=== PATIENT | female | born 1950 | race Caucasian/White ===

== ENCOUNTER 2021-06-01 21:40 | Inpatient (IN) | payer BC, MEDICARE ==
[2021-06-01 22:02] LABS: #Basophils 0.1 thou/uL (0.0-0.2); #Eosinphils 0.1 thou/uL (0.0-0.7); #Lymphocytes 1.6 thou/uL (1.20-3.40); #Monocytes 0.6 thou/uL (0.11-0.59); #Neutrophils 4.9 thou/uL (1.40-6.50); %Basophils 1.2 % (0.0-1.0); %Eosinophils 1.2 % (0.0-10.0); %Lymphocytes 22.2 % (21.0-51.0); %Monocytes 8.7 % (0.0-10.0); %Neutrophils 66.7 % (42.0-75.0); Hemoglobin 12.2 g/dL (12.0-16.0); Mean Corpuscular HGB CONC 34.4 g/dL (32.0-36.0); Mean Corpuscular Hemoglobin 33.3 pg (27.0-31.0); Mean Corpuscular Volume 96.7 fL (78.0-98.0); Mean Platelet Volume 8.3 fL (7.4-10.4); Platelet Count 225 thou/uL (130-400); RBC Distribution Width 12.9 % (11.5-14.5); Red Blood Cell (RBC) Count 3.68 mill/uL (4.20-5.40); White Blood Cell (WBC) Count 7.3 thou/uL (4.8-10.8)
[2021-06-01] MEDS ORDERED: Fentanyl 100 MCG/2 ML VIAL ONE (22:13)
[2021-06-01 23:22] LABS: Albumin 3.8 g/dL (3.4-4.8)
[2021-06-01 23:23] LABS: Chloride 100 mmol/L (98-107); Potassium 4.3 mmol/L (3.5-5.1); Sodium 136 mmol/L (136-145)
[2021-06-01 23:24] LABS: Calcium 9.8 mg/dL (7.8-10.44)
[2021-06-01 23:25] LABS: Globulin 3.1 g/dL (2.4-3.5); Glucose 125 mg/dL (83-110); Protein, Total 6.9 g/dL (5.8-8.1)
[2021-06-01 23:26] LABS: Anion Gap 14 mmol/L (10-20); Bilirubin, Total 0.4 mg/dL (0.2-1.2); Carbon Dioxide 26 mmol/L (23-31)
[2021-06-01 23:27] LABS: Alkaline Phosphatase 95 U/L (40-110)
[2021-06-01 23:28] LABS: Calc. Creatinine Clearance 0 mL/min (70-130)
[2021-06-01 23:29] LABS: BUN (Urea Nitrogen) 15 mg/dL (9.8-20.1)
[2021-06-01 23:30] LABS: ALT (SGPT) 17 U/L (8-55); AST (SGOT) 18 U/L (5-34)
[2021-06-01] MEDS ORDERED: Morphine 4 MG/ML VIAL ONE (23:32)
[2021-06-01] MEDS ORDERED: Ketorolac Tromethamine 30 MG/ML VIAL ONE (23:32)
[2021-06-01] MEDS ORDERED: Morphine 4 MG/ML VIAL SLOW IVP SCH (23:45)
[2021-06-01] MEDS ORDERED: Ketorolac Tromethamine 30 MG/ML VIAL IVP SCH (23:45)
[2021-06-02 00:16] LABS: SARS-CoV-2 NAA Rapid Test DETECTED (NotDetected)
[2021-06-02] MEDS ORDERED: HumaLOG 300 UNITS/3 ML VIAL SC PRN (01:45)
[2021-06-02] MEDS ORDERED: Dextrose 50% Abboject 50 ML SYRINGE SLOW IVP PRN (01:45)
[2021-06-02] MEDS ORDERED: Ondansetron ODT 4 MG TAB PO PRN (01:45)
[2021-06-02] MEDS ORDERED: Ondansetron PF 4 MG/2 ML Vial IVP PRN (01:45)
[2021-06-02] MEDS ORDERED: Dextrose 5% in Water 1,000 ML IV PRN (01:45)
[2021-06-02] MEDS: Sodium Chloride 0.9% 1,000 ML IV SCH ×2 (02:28→10:00)
[2021-06-02] MEDS: Ibuprofen 200 MG TAB PO SCH ×3 (02:29→18:35)
[2021-06-02] MEDS: Morphine 4 MG/ML VIAL SLOW IVP PRN ×2 (02:30→21:49)
[2021-06-02] MEDS: Cyclobenzaprine 10 MG TAB PO PRN ×2 (02:30→21:18)
[2021-06-02] MEDS: Acetaminophen 325 MG TAB PO SCH ×3 (02:30→21:20)
[2021-06-02 05:16] LABS: #Lymphocytes 0.7 thou/uL (1.20-3.40); #Monocytes 0.5 thou/uL (0.11-0.59); #Neutrophils 5.3 thou/uL (1.40-6.50); %Basophils 0.6 % (0.0-1.0); %Eosinophils 0.3 % (0.0-10.0); %Lymphocytes 10.8 % (21.0-51.0); %Neutrophils 81.4 % (42.0-75.0); Hemoglobin 11.4 g/dL (12.0-16.0); Mean Corpuscular HGB CONC 34.3 g/dL (32.0-36.0); Mean Corpuscular Hemoglobin 33.5 pg (27.0-31.0); Mean Corpuscular Volume 97.5 fL (78.0-98.0); Mean Platelet Volume 7.2 fL (7.4-10.4); Platelet Count 233 thou/uL (130-400); RBC Distribution Width 12.4 % (11.5-14.5); Red Blood Cell (RBC) Count 3.39 mill/uL (4.20-5.40); White Blood Cell (WBC) Count 6.5 thou/uL (4.8-10.8)
[2021-06-02 05:35] LABS: Anion Gap 14 mmol/L (10-20); BUN (Urea Nitrogen) 14 mg/dL (9.8-20.1); Calc. Creatinine Clearance 74 mL/min (70-130); Calcium 9.1 mg/dL (7.8-10.44); Carbon Dioxide 25 mmol/L (23-31); Chloride 100 mmol/L (98-107); Glucose 140 mg/dL (83-110); Potassium 3.9 mmol/L (3.5-5.1); Sodium 135 mmol/L (136-145)
[2021-06-02] MEDS ORDERED: ceFAZolin Sodium/D5W 2 GM in Premix Bag 1 BAG IVPB SCH (08:00)
[2021-06-02] MEDS ORDERED: ceFAZolin 2 GM/DEX 5% 100 ML BAG ONE ×2 (12:58→14:05)
[2021-06-02] MEDS ORDERED: Bupivacaine HCl 0.5%/Epinephrine 1:200,000/PF 30 ml Vial ONE (13:45)
[2021-06-02] MEDS ORDERED: Tranexamic Acid 1,000 MG/10 ML VIAL ONE (14:06)
[2021-06-02] MEDS ORDERED: Sodium Chloride 0.9% 100 ML ONE (14:06)
[2021-06-02] MEDS ORDERED: Albuterol Sulfate 1.25 MG/3 ML NEB ONE (14:42)
[2021-06-02] MEDS ORDERED: PROPOFOL 200 MG/20 ML VIAL ONE (14:58)
[2021-06-02] MEDS: Famotidine 20 MG TAB PO SCH ×2 (15:11→21:20)
[2021-06-02] MEDS ORDERED: Ondansetron HCl/PF 4 MG/2 ML Vial IVP PRN (16:46)
[2021-06-02] MEDS ORDERED: Promethazine HCl 25 MG/ML VIAL IVPB PRN (16:46)
[2021-06-02] MEDS ORDERED: Promethazine HCl 25 MG/ML VIAL IM PRN (16:46)
[2021-06-02] MEDS: hydrALAZINE 20 MG/ML VIAL SLOW IVP PRN (18:35)
[2021-06-02] MEDS: traMADol HCl 50 MG TAB PO PRN (21:19)
[2021-06-02] MEDS: ceFAZolin 2 GM/Dextrose 50 ML 2 GM in Premix Bag 1 BAG IVPB SCH (23:03)
[2021-06-03] MEDS: Acetaminophen 325 MG TAB PO SCH ×4 (01:25→23:53)
[2021-06-03] MEDS: Ibuprofen 200 MG TAB PO SCH ×3 (01:26→18:34)
[2021-06-03 08:10] LABS: Hemoglobin 11.4 g/dL (12.0-16.0); Mean Corpuscular Hemoglobin 33.4 pg (27.0-31.0); Mean Corpuscular Volume 98.2 fL (78.0-98.0); Mean Platelet Volume 7.2 fL (7.4-10.4); Platelet Count 199 thou/uL (130-400); RBC Distribution Width 12.3 % (11.5-14.5); Red Blood Cell (RBC) Count 3.41 mill/uL (4.20-5.40)
[2021-06-03] MEDS: traMADol HCl 50 MG TAB PO PRN ×2 (08:49→23:52)
[2021-06-03] MEDS: Famotidine 20 MG TAB PO SCH ×2 (08:51→23:53)
[2021-06-03] MEDS: ceFAZolin 2 GM/Dextrose 50 ML 2 GM in Premix Bag 1 BAG IVPB SCH (08:55)
[2021-06-03] MEDS ORDERED: Non-Formulary Item 1 EACH (Levothyroxine Sodium [Levothyroxine] 100 MCG Capsule) PO SCH (09:00)
[2021-06-03] MEDS: Enoxaparin Sodium 40 MG/0.4 ML SYRINGE SC SCH (10:41)
[2021-06-03] MEDS: Sodium Chloride 1 GM TAB PO SCH ×3 (10:43→23:54)
[2021-06-03] MEDS: Citalopram 10 MG TAB PO SCH (10:43)
[2021-06-03] MEDS: Rosuvastatin 20 MG TAB PO SCH (10:43)
[2021-06-03] MEDS ORDERED: Non-Formulary Item 1 EACH (Albuterol Sulfate [Albuterol Sulfate Hfa] 8.5 GM Hfa.Aer.Ad) INH SCH (12:00)
[2021-06-03] MEDS: HumaLOG 300 UNITS/3 ML VIAL SC PRN (12:09)
[2021-06-03] MEDS: Albuterol 200 PUFF (6.7GM INHALER) INH SCH ×3 (14:44→23:17)
[2021-06-03] MEDS: metFORMIN 500 MG TAB PO SCH (15:27)
[2021-06-04] MEDS ORDERED: diphenhydrAMINE 50 MG CAP PO SCH (02:30)
[2021-06-04] MEDS: Acetaminophen 325 MG TAB PO SCH ×4 (02:41→20:47)
[2021-06-04] MEDS: Ibuprofen 200 MG TAB PO SCH ×5 (02:44→18:00)
[2021-06-04] MEDS: Cyclobenzaprine 10 MG TAB PO PRN ×2 (02:44→20:49)
[2021-06-04] MEDS: Levothyroxine Sodium 100 MCG TAB PO SCH (05:15)
[2021-06-04 06:55] LABS: #Eosinphils 0.2 thou/uL (0.0-0.7); #Lymphocytes 0.7 thou/uL (1.20-3.40); #Monocytes 0.4 thou/uL (0.11-0.59); #Neutrophils 2.7 thou/uL (1.40-6.50); %Basophils 0.6 % (0.0-1.0); %Eosinophils 4.1 % (0.0-10.0); %Lymphocytes 16.9 % (21.0-51.0); %Monocytes 9.8 % (0.0-10.0); %Neutrophils 68.5 % (42.0-75.0); Mean Corpuscular HGB CONC 33.7 g/dL (32.0-36.0); Mean Corpuscular Hemoglobin 33.4 pg (27.0-31.0); Mean Platelet Volume 7.3 fL (7.4-10.4); Platelet Count 178 thou/uL (130-400); RBC Distribution Width 12.5 % (11.5-14.5); Red Blood Cell (RBC) Count 3.29 mill/uL (4.20-5.40); White Blood Cell (WBC) Count 3.9 thou/uL (4.8-10.8)
[2021-06-04 07:11] LABS: Anion Gap 10 mmol/L (10-20); BUN (Urea Nitrogen) 13 mg/dL (9.8-20.1); Calc. Creatinine Clearance 82 mL/min (70-130); Calcium 9.3 mg/dL (7.8-10.44); Carbon Dioxide 32 mmol/L (23-31); Chloride 101 mmol/L (98-107); Glucose 96 mg/dL (83-110); Magnesium 1.5 mg/dL (1.6-2.6); Phosphorus 2.3 mg/dL (2.3-4.7); Potassium 3.2 mmol/L (3.5-5.1); Sodium 140 mmol/L (136-145)
[2021-06-04] MEDS: Albuterol 200 PUFF (6.7GM INHALER) INH SCH ×4 (07:36→23:09)
[2021-06-04] MEDS: metFORMIN 500 MG TAB PO SCH ×2 (08:38→17:56)
[2021-06-04] MEDS: Enoxaparin Sodium 40 MG/0.4 ML SYRINGE SC SCH (08:39)
[2021-06-04] MEDS: Rosuvastatin 20 MG TAB PO SCH (08:39)
[2021-06-04] MEDS: Polyethylene Glycol 3350 17 GM Packet PO SCH (08:46)
[2021-06-04] MEDS: Sodium Chloride 1 GM TAB PO SCH ×3 (08:48→20:49)
[2021-06-04] MEDS: Senokot S 8.6-50 MG TAB PO SCH (08:48)
[2021-06-04] MEDS ORDERED: Potassium Phosphate 30 MMOL, Magnesium Sulfate 3 GM in Sodium Chloride 0.9% 250 ML 250 ML IVPB SCH (09:00)
[2021-06-04] MEDS ORDERED: Magnesium Sulfate 3 GM in Sodium Chloride 0.9% 100 ML IVPB SCH (09:00)
[2021-06-04] MEDS: HumaLOG 300 UNITS/3 ML VIAL SC PRN (12:28)
[2021-06-04] MEDS: Citalopram 10 MG TAB PO SCH (17:59)
[2021-06-04] MEDS: traMADol HCl 50 MG TAB PO PRN (20:49)
[2021-06-05] MEDS: Ibuprofen 200 MG TAB PO SCH ×3 (02:59→17:52)
[2021-06-05] MEDS: Acetaminophen 325 MG TAB PO SCH ×4 (03:00→22:13)
[2021-06-05] MEDS: Cyclobenzaprine 10 MG TAB PO PRN (03:05)
[2021-06-05] MEDS: Levothyroxine Sodium 100 MCG TAB PO SCH ×2 (07:06→14:34)
[2021-06-05] MEDS: Albuterol 200 PUFF (6.7GM INHALER) INH SCH ×3 (07:35→19:14)
[2021-06-05 08:42] LABS: #Eosinphils 0.1 thou/uL (0.0-0.7); #Lymphocytes 0.5 thou/uL (1.20-3.40); #Monocytes 0.3 thou/uL (0.11-0.59); #Neutrophils 1.8 thou/uL (1.40-6.50); %Basophils 1.2 % (0.0-1.0); %Eosinophils 4.5 % (0.0-10.0); %Lymphocytes 17.7 % (21.0-51.0); %Monocytes 10.3 % (0.0-10.0); %Neutrophils 66.2 % (42.0-75.0); Hemoglobin 9.4 g/dL (12.0-16.0); Mean Corpuscular HGB CONC 31.8 g/dL (32.0-36.0); Mean Corpuscular Hemoglobin 31.8 pg (27.0-31.0); Mean Platelet Volume 7.4 fL (7.4-10.4); Platelet Count 187 thou/uL (130-400); RBC Distribution Width 12.5 % (11.5-14.5); Red Blood Cell (RBC) Count 2.97 mill/uL (4.20-5.40); White Blood Cell (WBC) Count 2.7 thou/uL (4.8-10.8)
[2021-06-05 09:56] LABS: Anion Gap 13 mmol/L (10-20); BUN (Urea Nitrogen) 15 mg/dL (9.8-20.1); Calc. Creatinine Clearance 84 mL/min (70-130); Calcium 8.4 mg/dL (7.8-10.44); Carbon Dioxide 26 mmol/L (23-31); Chloride 101 mmol/L (98-107); Glucose 160 mg/dL (83-110); Magnesium 2.1 mg/dL (1.6-2.6); Potassium 3.9 mmol/L (3.5-5.1); Sodium 136 mmol/L (136-145)
[2021-06-05] MEDS: Polyethylene Glycol 3350 17 GM Packet PO SCH (10:37)
[2021-06-05] MEDS: Senokot S 8.6-50 MG TAB PO SCH (10:38)
[2021-06-05] MEDS ORDERED: traMADol HCl 50 MG TAB PO PRN (11:13)
[2021-06-05] MEDS: Sodium Chloride 1 GM TAB PO SCH ×3 (13:04→22:13)
[2021-06-05] MEDS: Enoxaparin Sodium 40 MG/0.4 ML SYRINGE SC SCH (13:04)
[2021-06-05] MEDS: Rosuvastatin 20 MG TAB PO SCH (13:04)
[2021-06-05] MEDS: Ascorbic Acid 500 mg Chewable Tablet PO SCH (16:57)
[2021-06-06] MEDS: Albuterol 200 PUFF (6.7GM INHALER) INH SCH ×4 (01:43→19:08)
[2021-06-06] MEDS: Acetaminophen 325 MG TAB PO SCH ×4 (02:30→20:26)
[2021-06-06] MEDS: Ibuprofen 200 MG TAB PO SCH ×3 (02:30→17:55)
[2021-06-06] MEDS: Levothyroxine Sodium 100 MCG TAB PO SCH (05:23)
[2021-06-06] MEDS: Ascorbic Acid 500 mg Chewable Tablet PO SCH (08:46)
[2021-06-06] MEDS: Sodium Chloride 1 GM TAB PO SCH ×3 (08:46→20:27)
[2021-06-06] MEDS: Rosuvastatin 20 MG TAB PO SCH (08:46)
[2021-06-06] MEDS: Senokot S 8.6-50 MG TAB PO SCH (08:46)
[2021-06-06] MEDS: Ferrous Sulfate 325 MG TAB PO SCH (08:47)
[2021-06-06] MEDS: Enoxaparin Sodium 40 MG/0.4 ML SYRINGE SC SCH (08:47)
[2021-06-06] MEDS: Citalopram 10 MG TAB PO SCH (08:47)
[2021-06-06] MEDS: Polyethylene Glycol 3350 17 GM Packet PO SCH (08:47)
[2021-06-06] MEDS: metFORMIN 500 MG TAB PO SCH (10:57)
[2021-06-06 11:47] LABS: #Eosinphils 0.1 thou/uL (0.0-0.7); #Lymphocytes 0.4 thou/uL (1.20-3.40); #Monocytes 0.3 thou/uL (0.11-0.59); #Neutrophils 1.8 thou/uL (1.40-6.50); %Basophils 1.8 % (0.0-1.0); %Eosinophils 3.7 % (0.0-10.0); %Lymphocytes 14.8 % (21.0-51.0); %Monocytes 10.9 % (0.0-10.0); %Neutrophils 68.7 % (42.0-75.0); Hemoglobin 10.1 g/dL (12.0-16.0); Mean Corpuscular HGB CONC 31.6 g/dL (32.0-36.0); Mean Corpuscular Hemoglobin 31.4 pg (27.0-31.0); Mean Corpuscular Volume 99.4 fL (78.0-98.0); Mean Platelet Volume 7.2 fL (7.4-10.4); Platelet Count 240 thou/uL (130-400); RBC Distribution Width 12.6 % (11.5-14.5); Red Blood Cell (RBC) Count 3.22 mill/uL (4.20-5.40); White Blood Cell (WBC) Count 2.6 thou/uL (4.8-10.8)
[2021-06-06] MEDS: cefTRIAXone\\ROCEPHIN 1 GM in Sodium Chloride 0.9% 100 ML IVPB SCH (15:39)
[2021-06-06] MEDS: Azithromycin 500 MG in Sodium Chloride 0.9% 250 ML 250 ML IVPB SCH (15:44)
[2021-06-07] MEDS: Albuterol 200 PUFF (6.7GM INHALER) INH SCH ×4 (01:34→19:14)
[2021-06-07] MEDS: Acetaminophen 325 MG TAB PO SCH ×4 (02:52→20:39)
[2021-06-07] MEDS: Ibuprofen 200 MG TAB PO SCH ×3 (02:52→19:55)
[2021-06-07] MEDS: Levothyroxine Sodium 100 MCG TAB PO SCH (06:16)
[2021-06-07 07:02] LABS: Mean Corpuscular HGB CONC 32.1 g/dL (32.0-36.0); Mean Corpuscular Hemoglobin 32.1 pg (27.0-31.0); Mean Platelet Volume 6.5 fL (7.4-10.4); Platelet Count 239 thou/uL (130-400); RBC Distribution Width 12.8 % (11.5-14.5); White Blood Cell (WBC) Count 2.3 thou/uL (4.8-10.8)
[2021-06-07 08:47] LABS: Band 35 % (5-11); Eosinophils 1 % (0-10); Lymphocytes 12 % (21-51); MDiff Complete? YES; Macrocytosis SLIGHT = 6-15 cells (100X) (0-5/hpf); Monocytes 11 % (0-10); Neutrophil 34 % (42-75); Platelet Morphology Comment Appears Adequate; Reactive Lymphocytes 7 % (0-10)
[2021-06-07] MEDS: Enoxaparin Sodium 40 MG/0.4 ML SYRINGE SC SCH (09:05)
[2021-06-07] MEDS: Citalopram 10 MG TAB PO SCH (09:06)
[2021-06-07] MEDS: Ferrous Sulfate 325 MG TAB PO SCH (09:06)
[2021-06-07] MEDS: Polyethylene Glycol 3350 17 GM Packet PO SCH (09:06)
[2021-06-07] MEDS: Ascorbic Acid 500 mg Chewable Tablet PO SCH (09:07)
[2021-06-07] MEDS: Senokot S 8.6-50 MG TAB PO SCH (09:07)
[2021-06-07] MEDS: Sodium Chloride 1 GM TAB PO SCH ×3 (09:07→20:38)
[2021-06-07] MEDS: Rosuvastatin 20 MG TAB PO SCH (09:07)
[2021-06-07] MEDS: cefTRIAXone\\ROCEPHIN 1 GM in Sodium Chloride 0.9% 100 ML IVPB SCH (14:09)
[2021-06-07] MEDS: Azithromycin 500 MG in Sodium Chloride 0.9% 250 ML 250 ML IVPB SCH (14:45)
[2021-06-07 22:41] LABS: Actual Bicarbonate (HCO3a) 31.7 mEq/L (22-28); Base Excess (BEa) 1.9 mEq/L (-2.0 to +3.0); Calcium, Ionized (arterial) 1.19 mmol/L (1.12-1.30); Carboxyhemoglobin (COHb) 0.4 gm% (0.0-3.0); Hemoglobin (Hb) 11.5 g/dL (12.0-16.0); O2 Tension (PaO2), arterial 239.3 mmHg (> 70.0); Potassium - ABG Lab 4.45 mmol/L (3.70-5.30)
[2021-06-07 22:42] LABS: CO2 Tension 81.1 mmHg (35.0-45.0); Puncture Site LRA; pH, Arterial 7.21 (7.35-7.45)
[2021-06-07] MEDS ORDERED: Bisacodyl 10 MG SUPP PR SCH (23:15)
[2021-06-07] MEDS ORDERED: Magnesium Sulfate 3 GM in Sodium Chloride 0.9% 250 ML 250 ML IVPB SCH (23:45)
[2021-06-08] MEDS: methylPREDNISolone Sod Succ 40 MG VIAL IVP SCH ×4 (00:22→17:19)
[2021-06-08] MEDS: Ibuprofen 200 MG TAB PO SCH ×4 (03:09→17:17)
[2021-06-08] MEDS: Acetaminophen 325 MG TAB PO SCH ×5 (03:09→19:54)
[2021-06-08] MEDS: Levothyroxine Sodium 100 MCG TAB PO SCH (05:20)
[2021-06-08] MEDS: Sodium Chloride 0.9% 1,000 ML IV SCH ×3 (05:22→21:00)
[2021-06-08 06:42] LABS: Anion Gap 16 mmol/L (10-20); BUN (Urea Nitrogen) 11 mg/dL (9.8-20.1); Calc. Creatinine Clearance 68 mL/min (70-130); Calcium 8.9 mg/dL (7.8-10.44); Carbon Dioxide 29 mmol/L (23-31); Chloride 102 mmol/L (98-107); Glucose 146 mg/dL (83-110); Magnesium 2.7 mg/dL (1.6-2.6); Phosphorus 3.4 mg/dL (2.3-4.7); Potassium 4.8 mmol/L (3.5-5.1); Sodium 142 mmol/L (136-145)
[2021-06-08] MEDS: Ferrous Sulfate 325 MG TAB PO SCH (08:36)
[2021-06-08 09:46] LABS: Band 24 % (5-11); Hemoglobin 10.5 g/dL (12.0-16.0); Lymphocytes 11 % (21-51); MDiff Complete? YES; Macrocytosis SLIGHT = 6-15 cells (100X) (0-5/hpf); Mean Corpuscular HGB CONC 32.1 g/dL (32.0-36.0); Mean Corpuscular Hemoglobin 32.1 pg (27.0-31.0); Mean Platelet Volume 6.8 fL (7.4-10.4); Monocytes 3 % (0-10); Neutrophil 60 % (42-75); Platelet Count 238 thou/uL (130-400); Platelet Morphology Comment Appears Adequate; Polychromasia SLIGHT = 2-3 cells (100X) (0-2/hpf); RBC Distribution Width 12.8 % (11.5-14.5); Reactive Lymphocytes 2 % (0-10); Red Blood Cell (RBC) Count 3.27 mill/uL (4.20-5.40); Target Cells SLIGHT = 2-5 cells (100X) (0-1/hpf); White Blood Cell (WBC) Count 1.9 thou/uL (4.8-10.8)
[2021-06-08] MEDS: Ascorbic Acid 500 mg Chewable Tablet PO SCH (10:06)
[2021-06-08] MEDS: Citalopram 10 MG TAB PO SCH (10:06)
[2021-06-08] MEDS: Sodium Chloride 1 GM TAB PO SCH ×2 (10:07→15:12)
[2021-06-08] MEDS: Rosuvastatin 20 MG TAB PO SCH (10:07)
[2021-06-08] MEDS: Polyethylene Glycol 3350 17 GM Packet PO SCH (10:07)
[2021-06-08] MEDS: Senokot S 8.6-50 MG TAB PO SCH (10:07)
[2021-06-08] MEDS: Famotidine/PF 20 mg/2ml Vial SLOW IVP SCH ×2 (10:11→19:55)
[2021-06-08] MEDS: Enoxaparin Sodium 40 MG/0.4 ML SYRINGE SC SCH (10:11)
[2021-06-08] MEDS: cefTRIAXone\\ROCEPHIN 1 GM in Sodium Chloride 0.9% 100 ML IVPB SCH (12:43)
[2021-06-08] MEDS: Azithromycin 500 MG in Sodium Chloride 0.9% 250 ML 250 ML IVPB SCH (13:16)
[2021-06-09] MEDS: methylPREDNISolone Sod Succ 40 MG VIAL IVP SCH ×4 (00:09→18:21)
[2021-06-09] MEDS: Acetaminophen 325 MG TAB PO SCH ×4 (01:57→20:01)
[2021-06-09] MEDS: Ibuprofen 200 MG TAB PO SCH ×3 (01:57→18:08)
[2021-06-09 04:00] LABS: #Lymphocytes 0.4 thou/uL (1.20-3.40); #Monocytes 0.2 thou/uL (0.11-0.59); #Neutrophils 1.6 thou/uL (1.40-6.50); %Eosinophils 0.3 % (0.0-10.0); %Lymphocytes 16.7 % (21.0-51.0); %Monocytes 8.1 % (0.0-10.0); %Neutrophils 74.8 % (42.0-75.0); Hemoglobin 9.4 g/dL (12.0-16.0); Mean Corpuscular HGB CONC 31.9 g/dL (32.0-36.0); Mean Corpuscular Hemoglobin 31.4 pg (27.0-31.0); Mean Corpuscular Volume 98.5 fL (78.0-98.0); Mean Platelet Volume 7.1 fL (7.4-10.4); Platelet Count 254 thou/uL (130-400); RBC Distribution Width 12.6 % (11.5-14.5); Red Blood Cell (RBC) Count 2.99 mill/uL (4.20-5.40); White Blood Cell (WBC) Count 2.1 thou/uL (4.8-10.8)
[2021-06-09 04:31] LABS: Anion Gap 14 mmol/L (10-20); BUN (Urea Nitrogen) 17 mg/dL (9.8-20.1); Calc. Creatinine Clearance 71 mL/min (70-130); Calcium 8.7 mg/dL (7.8-10.44); Carbon Dioxide 27 mmol/L (23-31); Chloride 105 mmol/L (98-107); Glucose 185 mg/dL (83-110); Magnesium 2.2 mg/dL (1.6-2.6); Phosphorus 2.6 mg/dL (2.3-4.7); Potassium 4.7 mmol/L (3.5-5.1); Sodium 141 mmol/L (136-145)
[2021-06-09] MEDS: Levothyroxine Sodium 100 MCG TAB PO SCH (05:41)
[2021-06-09] MEDS: HumaLOG 300 UNITS/3 ML VIAL SC PRN (06:23)
[2021-06-09] MEDS: Ferrous Sulfate 325 MG TAB PO SCH (08:47)
[2021-06-09] MEDS: Ascorbic Acid 500 mg Chewable Tablet PO SCH (08:49)
[2021-06-09] MEDS: Rosuvastatin 20 MG TAB PO SCH (08:49)
[2021-06-09] MEDS: Senokot S 8.6-50 MG TAB PO SCH (08:49)
[2021-06-09] MEDS: Famotidine/PF 20 mg/2ml Vial SLOW IVP SCH ×2 (08:49→20:03)
[2021-06-09] MEDS: Polyethylene Glycol 3350 17 GM Packet PO SCH (08:50)
[2021-06-09] MEDS: Sodium Chloride 0.9% 1,000 ML IV SCH ×2 (08:50→19:59)
[2021-06-09] MEDS: Enoxaparin Sodium 40 MG/0.4 ML SYRINGE SC SCH (08:50)
[2021-06-09] MEDS: Citalopram 10 MG TAB PO SCH (08:53)
[2021-06-09] MEDS: cefTRIAXone\\ROCEPHIN 1 GM in Sodium Chloride 0.9% 100 ML IVPB SCH (13:59)
[2021-06-09] MEDS: Azithromycin 500 MG in Sodium Chloride 0.9% 250 ML 250 ML IVPB SCH (14:08)
[2021-06-09] MEDS: hydrALAZINE 20 MG/ML VIAL SLOW IVP PRN (20:17)
[2021-06-09] MEDS: Cyclobenzaprine 10 MG TAB PO PRN (21:30)
[2021-06-09] MEDS: traMADol HCl 50 MG TAB PO PRN (21:33)
[2021-06-10] MEDS: methylPREDNISolone Sod Succ 40 MG VIAL IVP SCH ×4 (00:41→17:05)
[2021-06-10] MEDS: Acetaminophen 325 MG TAB PO SCH ×4 (01:20→21:28)
[2021-06-10] MEDS: Ibuprofen 200 MG TAB PO SCH ×3 (01:21→17:10)
[2021-06-10 03:24] LABS: #Lymphocytes 0.4 thou/uL (1.20-3.40); #Monocytes 0.4 thou/uL (0.11-0.59); #Neutrophils 2.8 thou/uL (1.40-6.50); %Eosinophils 0.1 % (0.0-10.0); %Lymphocytes 10.6 % (21.0-51.0); %Monocytes 9.9 % (0.0-10.0); %Neutrophils 79.4 % (42.0-75.0); Hemoglobin 9.5 g/dL (12.0-16.0); Mean Corpuscular HGB CONC 32.4 g/dL (32.0-36.0); Mean Corpuscular Hemoglobin 31.8 pg (27.0-31.0); Mean Corpuscular Volume 98.2 fL (78.0-98.0); Mean Platelet Volume 6.8 fL (7.4-10.4); Platelet Count 299 thou/uL (130-400); RBC Distribution Width 12.5 % (11.5-14.5); White Blood Cell (WBC) Count 3.5 thou/uL (4.8-10.8)
[2021-06-10 03:43] LABS: Anion Gap 14 mmol/L (10-20); BUN (Urea Nitrogen) 17 mg/dL (9.8-20.1); Calc. Creatinine Clearance 75 mL/min (70-130); Calcium 8.6 mg/dL (7.8-10.44); Carbon Dioxide 27 mmol/L (23-31); Chloride 103 mmol/L (98-107); Glucose 171 mg/dL (83-110); Magnesium 1.8 mg/dL (1.6-2.6); Phosphorus 2.3 mg/dL (2.3-4.7); Potassium 4.3 mmol/L (3.5-5.1); Sodium 140 mmol/L (136-145)
[2021-06-10] MEDS: Cyclobenzaprine 10 MG TAB PO PRN (05:24)
[2021-06-10] MEDS: Levothyroxine Sodium 100 MCG TAB PO SCH (05:24)
[2021-06-10] MEDS: Enoxaparin Sodium 40 MG/0.4 ML SYRINGE SC SCH (09:11)
[2021-06-10] MEDS: Famotidine/PF 20 mg/2ml Vial SLOW IVP SCH ×2 (09:11→21:30)
[2021-06-10] MEDS: Senokot S 8.6-50 MG TAB PO SCH (09:12)
[2021-06-10] MEDS: Citalopram 10 MG TAB PO SCH (09:12)
[2021-06-10] MEDS: Ferrous Sulfate 325 MG TAB PO SCH (09:12)
[2021-06-10] MEDS: Saccharomyces boulardii 250 MG CAP PO SCH (09:12)
[2021-06-10] MEDS: Rosuvastatin 20 MG TAB PO SCH (09:12)
[2021-06-10] MEDS: Acetaminophen/Codeine 30-300mg Tablet PO PRN ×2 (09:12→17:04)
[2021-06-10] MEDS: Ascorbic Acid 500 mg Chewable Tablet PO SCH (09:12)
[2021-06-10] MEDS: Polyethylene Glycol 3350 17 GM Packet PO SCH (09:13)
[2021-06-10] MEDS ORDERED: Furosemide 40 MG/4 ML VIAL ONE (10:57)
[2021-06-10] MEDS ORDERED: Furosemide 20 MG/2 ML VIAL SLOW IVP SCH (11:00)
[2021-06-10] MEDS: Azithromycin 500 MG in Sodium Chloride 0.9% 250 ML 250 ML IVPB SCH (13:27)
[2021-06-10] MEDS: cefTRIAXone\\ROCEPHIN 1 GM in Sodium Chloride 0.9% 100 ML IVPB SCH (13:27)
[2021-06-10] MEDS: Furosemide 20 MG/2 ML VIAL SLOW IVP SCH (17:04)
[2021-06-10 17:10] LABS: Anion Gap 14 mmol/L (10-20); BUN (Urea Nitrogen) 18 mg/dL (9.8-20.1); Calc. Creatinine Clearance 66 mL/min (70-130); Calcium 8.9 mg/dL (7.8-10.44); Carbon Dioxide 32 mmol/L (23-31); Chloride 99 mmol/L (98-107); Glucose 171 mg/dL (83-110); Magnesium 1.7 mg/dL (1.6-2.6); Phosphorus 2.5 mg/dL (2.3-4.7); Potassium 4.3 mmol/L (3.5-5.1); Sodium 141 mmol/L (136-145)
[2021-06-10] MEDS ORDERED: Magnesium Sulfate 3 GM in Sodium Chloride 0.9% 100 ML IV SCH (18:30)
[2021-06-10] MEDS ORDERED: metFORMIN 500 MG TAB PO SCH (18:30)
[2021-06-10] MEDS: Melatonin 3 MG TAB PO SCH (21:29)
[2021-06-11] MEDS: methylPREDNISolone Sod Succ 40 MG VIAL IVP SCH ×4 (00:05→17:16)
[2021-06-11] MEDS: Furosemide 20 MG/2 ML VIAL SLOW IVP SCH ×4 (00:59→21:22)
[2021-06-11] MEDS: Acetaminophen/Codeine 30-300mg Tablet PO PRN (02:45)
[2021-06-11] MEDS: Ibuprofen 200 MG TAB PO SCH ×3 (02:49→17:20)
[2021-06-11] MEDS: Acetaminophen 325 MG TAB PO SCH ×4 (02:58→14:16)
[2021-06-11 04:01] LABS: Mean Corpuscular HGB CONC 33.2 g/dL (32.0-36.0); Mean Corpuscular Hemoglobin 32.1 pg (27.0-31.0); Mean Corpuscular Volume 96.7 fL (78.0-98.0); Mean Platelet Volume 6.8 fL (7.4-10.4); Platelet Count 324 thou/uL (130-400); RBC Distribution Width 12.6 % (11.5-14.5); Red Blood Cell (RBC) Count 3.12 mill/uL (4.20-5.40); White Blood Cell (WBC) Count 3.3 thou/uL (4.8-10.8)
[2021-06-11 04:15] LABS: Anion Gap 16 mmol/L (10-20); BUN (Urea Nitrogen) 18 mg/dL (9.8-20.1); Calc. Creatinine Clearance 67 mL/min (70-130); Calcium 8.8 mg/dL (7.8-10.44); Carbon Dioxide 32 mmol/L (23-31); Chloride 96 mmol/L (98-107); Glucose 186 mg/dL (83-110); Magnesium 2.4 mg/dL (1.6-2.6); Potassium 3.6 mmol/L (3.5-5.1); Sodium 140 mmol/L (136-145)
[2021-06-11 04:27] LABS: Band 6 % (5-11); Lymphocytes 14 % (21-51); MDiff Complete? YES; Monocytes 9 % (0-10); Neutrophil 71 % (42-75)
[2021-06-11] MEDS: Levothyroxine Sodium 100 MCG TAB PO SCH (06:22)
[2021-06-11] MEDS ORDERED: Potassium Phosphate 30 MMOL in Sodium Chloride 0.9% 250 ML 250 ML IVPB SCH (08:00)
[2021-06-11] MEDS ORDERED: Furosemide 20 MG/2 ML VIAL SLOW IVP SCH (09:30)
[2021-06-11] MEDS: Ferrous Sulfate 325 MG TAB PO SCH (09:45)
[2021-06-11] MEDS: Cyclobenzaprine 10 MG TAB PO PRN (09:45)
[2021-06-11] MEDS: Ascorbic Acid 500 mg Chewable Tablet PO SCH (09:45)
[2021-06-11] MEDS: metFORMIN 500 MG TAB PO SCH ×2 (09:46→17:16)
[2021-06-11] MEDS: Rosuvastatin 20 MG TAB PO SCH (09:47)
[2021-06-11] MEDS: Senokot S 8.6-50 MG TAB PO SCH (09:47)
[2021-06-11] MEDS: Saccharomyces boulardii 250 MG CAP PO SCH (09:48)
[2021-06-11] MEDS: Citalopram 10 MG TAB PO SCH (09:48)
[2021-06-11] MEDS: Famotidine 20 MG TAB PO SCH ×2 (09:49→21:21)
[2021-06-11] MEDS: Enoxaparin Sodium 40 MG/0.4 ML SYRINGE SC SCH (09:49)
[2021-06-11] MEDS: Polyethylene Glycol 3350 17 GM Packet PO SCH (09:50)
[2021-06-11] MEDS: cefTRIAXone\\ROCEPHIN 1 GM in Sodium Chloride 0.9% 100 ML IVPB SCH (13:46)
[2021-06-11] MEDS: Azithromycin 500 MG in Sodium Chloride 0.9% 250 ML 250 ML IVPB SCH (13:52)
[2021-06-11] MEDS: HumaLOG 300 UNITS/3 ML VIAL SC PRN (17:17)
[2021-06-11] MEDS: Melatonin 3 MG TAB PO SCH (21:21)
[2021-06-11] MEDS: Lantus 1000 UNITS/10 ML VIAL SC SCH (21:33)
[2021-06-12] MEDS: methylPREDNISolone Sod Succ 40 MG VIAL IVP SCH ×2 (01:18→08:00)
[2021-06-12] MEDS: Acetaminophen 325 MG TAB PO SCH ×5 (01:19→22:21)
[2021-06-12] MEDS: Acetaminophen/Codeine 30-300mg Tablet PO PRN (01:54)
[2021-06-12 04:51] LABS: Anion Gap 18 mmol/L (10-20); BUN (Urea Nitrogen) 20 mg/dL (9.8-20.1); Calc. Creatinine Clearance 70 mL/min (70-130); Calcium 8.7 mg/dL (7.8-10.44); Carbon Dioxide 37 mmol/L (23-31); Chloride 90 mmol/L (98-107); Glucose 128 mg/dL (83-110); Magnesium 1.9 mg/dL (1.6-2.6); Phosphorus 3.3 mg/dL (2.3-4.7); Potassium 3.8 mmol/L (3.5-5.1); Sodium 141 mmol/L (136-145)
[2021-06-12] MEDS ORDERED: Potassium Chloride 20 MEQ TAB PO SCH (06:30)
[2021-06-12] MEDS: Levothyroxine Sodium 100 MCG TAB PO SCH (06:35)
[2021-06-12] MEDS: Furosemide 20 MG/2 ML VIAL SLOW IVP SCH (06:35)
[2021-06-12] MEDS: Ibuprofen 200 MG TAB PO SCH ×3 (08:00→17:12)
[2021-06-12 09:41] VITALS: BMI 29.1
[2021-06-12] MEDS: Saccharomyces boulardii 250 MG CAP PO SCH (10:26)
[2021-06-12] MEDS: Enoxaparin Sodium 40 MG/0.4 ML SYRINGE SC SCH (10:26)
[2021-06-12] MEDS: Rosuvastatin 20 MG TAB PO SCH (10:26)
[2021-06-12] MEDS: Polyethylene Glycol 3350 17 GM Packet PO SCH (10:26)
[2021-06-12] MEDS: Ascorbic Acid 500 mg Chewable Tablet PO SCH (10:27)
[2021-06-12] MEDS: Senokot S 8.6-50 MG TAB PO SCH (10:27)
[2021-06-12] MEDS: Ferrous Sulfate 325 MG TAB PO SCH (10:28)
[2021-06-12] MEDS: Famotidine 20 MG TAB PO SCH ×2 (10:28→22:17)
[2021-06-12] MEDS: metFORMIN 500 MG TAB PO SCH ×2 (10:28→17:06)
[2021-06-12] MEDS: predniSONE 20 MG TAB PO SCH ×2 (10:28→22:22)
[2021-06-12] MEDS: Citalopram 10 MG TAB PO SCH (10:28)
[2021-06-12] MEDS: Azithromycin 500 MG in Sodium Chloride 0.9% 250 ML 250 ML IVPB SCH (13:28)
[2021-06-12] MEDS: cefTRIAXone\\ROCEPHIN 1 GM in Sodium Chloride 0.9% 100 ML IVPB SCH (13:28)
[2021-06-12] MEDS: HumaLOG 300 UNITS/3 ML VIAL SC PRN (18:19)
[2021-06-12] MEDS: Melatonin 3 MG TAB PO SCH (22:21)
[2021-06-12] MEDS: Lantus 1000 UNITS/10 ML VIAL SC SCH (22:28)
[2021-06-13] MEDS: Acetaminophen 325 MG TAB PO SCH ×2 (03:15→09:45)
[2021-06-13] MEDS: Ibuprofen 200 MG TAB PO SCH ×2 (03:15→09:40)
[2021-06-13] MEDS: Levothyroxine Sodium 100 MCG TAB PO SCH (06:24)
[2021-06-13 08:52] LABS: Anion Gap 13 mmol/L (10-20); BUN (Urea Nitrogen) 20 mg/dL (9.8-20.1); Calc. Creatinine Clearance 79 mL/min (70-130); Calcium 8.7 mg/dL (7.8-10.44); Carbon Dioxide 37 mmol/L (23-31); Chloride 92 mmol/L (98-107); Glucose 147 mg/dL (83-110); Magnesium 1.9 mg/dL (1.6-2.6); Phosphorus 2.7 mg/dL (2.3-4.7); Potassium 4.6 mmol/L (3.5-5.1); Sodium 137 mmol/L (136-145)
[2021-06-13] MEDS: metFORMIN 500 MG TAB PO SCH (09:40)
[2021-06-13] MEDS: Senokot S 8.6-50 MG TAB PO SCH (09:40)
[2021-06-13] MEDS: Rosuvastatin 20 MG TAB PO SCH (09:40)
[2021-06-13] MEDS: Ferrous Sulfate 325 MG TAB PO SCH (09:40)
[2021-06-13] MEDS: Saccharomyces boulardii 250 MG CAP PO SCH (09:40)
[2021-06-13] MEDS: Polyethylene Glycol 3350 17 GM Packet PO SCH (09:40)
[2021-06-13] MEDS: Citalopram 10 MG TAB PO SCH (09:41)
[2021-06-13] MEDS: Enoxaparin Sodium 40 MG/0.4 ML SYRINGE SC SCH (09:42)
[2021-06-13] MEDS: Ascorbic Acid 500 mg Chewable Tablet PO SCH (09:42)
[2021-06-13] MEDS: predniSONE 20 MG TAB PO SCH (09:42)
[2021-06-13] MEDS: Famotidine 20 MG TAB PO SCH (09:42)
[2021-06-13 12:37] VITALS: BP 132/68; TEMP 98
[2021-06-14] MEDS ORDERED: predniSONE 20 MG TAB PO SCH (09:00)
== END 2021-06-13 14:39 | DRG 521 ==
LOC: ERS 21:40 → SJJU 23:06 → CCU 06-07 22:47 → IMCU/EMU 06-09 04:49 → SURG A 06-12 18:25
PROVIDERS: ADMIT Surgery; ATTEND Surgery
PROC: 8E0ZXY6 Isolation (ICD-10-PCS; 2021-06-01)
PROC: 0SRS01Z Replacement of Left Hip Joint, Femoral Surface with Metal Synthetic Substitute, Open Approach (ICD-10-PCS; principal; 2021-06-02)
PROC: 5A09357 Assistance with Respiratory Ventilation, Less than 24 Consecutive Hours, Continuous Positive Airway Pressure (ICD-10-PCS; 2021-06-07)
PROC: 5A09357 Assistance with Respiratory Ventilation, Less than 24 Consecutive Hours, Continuous Positive Airway Pressure (ICD-10-PCS; 2021-06-09)
DX: S72.002A Fracture of unspecified part of neck of left femur, initial encounter for closed fracture (principal); J69.0 Pneumonitis due to inhalation of food and vomit; U07.1 COVID-19; J15.9 Unspecified bacterial pneumonia; J44.1 Chronic obstructive pulmonary disease with (acute) exacerbation; N17.9 Acute kidney failure, unspecified; J96.11 Chronic respiratory failure with hypoxia; J96.12 Chronic respiratory failure with hypercapnia; J44.0 Chronic obstructive pulmonary disease with (acute) lower respiratory infection; W18.30XA Fall on same level, unspecified, initial encounter; I50.9 Heart failure, unspecified; D70.9 Neutropenia, unspecified; E11.9 Type 2 diabetes mellitus without complications; E78.5 Hyperlipidemia, unspecified; E03.9 Hypothyroidism, unspecified; F32.A Depression, unspecified; M81.0 Age-related osteoporosis without current pathological fracture; I11.0 Hypertensive heart disease with heart failure; R41.0 Disorientation, unspecified; D64.9 Anemia, unspecified; E83.42 Hypomagnesemia; I25.10 Atherosclerotic heart disease of native coronary artery without angina pectoris; Z88.6 Allergy status to analgesic agent; Y92.099 Unspecified place in other non-institutional residence as the place of occurrence of the external cause; Z88.8 Allergy status to other drugs, medicaments and biological substances; Z79.899 Other long term (current) drug therapy; Z79.890 Hormone replacement therapy; Z79.84 Long term (current) use of oral hypoglycemic drugs; Z86.16 Personal history of COVID-19; Z87.891 Personal history of nicotine dependence; Z78.1 Physical restraint status; Z91.018 Allergy to other foods
CPT/HCPCS: 36415; 36416; 36600; 71045; 72170; 80048; 80053; 82805; 83735; 84100; 85007; 85025; 85027; 93005; 94640; 94660; 96374; C1776; C1789; G0390; J0360; J0456; J0690; J0696; J1650; J1815; J1885; J1940; J2270; J2704; J2920; J3010; J3475; J3490; J7050; J7512; J7620; S0028; U0002